=== PATIENT | female | born 1940 | race Caucasian/White ===

== ENCOUNTER 2023-09-24 17:22 | Emergency (ER) | payer MEDICARE, SELFPAY ==
[2023-09-24 17:25] VITALS: BP 104/62
[2023-09-24 17:44] LABS: % Basophils 0.6 % (0-2); % Eosinophils 3.8 % (0-6); % Immature Granulocytes 0.4 % (0-0.5); % Lymphocytes 16.1 % (20.5-51.1); % Monocytes 9.8 % (1.7-9.3); % Neutrophils 69.3 % (42.2-75.2); Absolute Eosinophils 0.2 10^3/uL (0-0.7); Absolute Lymphocytes 0.8 10^3/uL (1.2-3.4); Absolute Monocytes 0.5 10^3/uL (0.1-0.6); Absolute Neutrophils 3.5 10^3/uL (1.4-6.5); Hematocrit 36.6 % (37.0-47.0); Hemoglobin 11.8 g/dL (12.0-16.0); Mean Corp Hgb Conc. 32.2 g/dL (33.0-37.0); Mean Corpuscular Hgb 28.9 pg (27.0-31.0); Mean Corpuscular Volume 89.5 fL (81.0-99.0); Mean Platelet Volume 9.8 fL (7.4-10.4); Nucleated Red Blood Cells % 0 %; Platelet Count 248 10^3/uL (130-400); Red Blood Cell Count 4.09 10^6/uL (4.20-5.40); Red Cell Dist. Width 15.5 % (11.5-14.5)
[2023-09-24 18:03] LABS: ALT (SGPT) 13 U/L (0-35); AST (SGOT) 32 U/L (14-36); Albumin 3.9 g/dl (3.5-5.0); Alkaline Phosphatase 70 U/L (38-126); Blood Urea Nitrogen 23 mg/dl (7-17); Carbon Dioxide 25 mmol/L (22-30); Chloride 105 mmol/L (98-107); Glucose 138 mg/dl (70-99); Lipase 233 U/L (23-300); Potassium 4.7 mmol/L (3.5-5.1); Sodium 136 mmol/L (135-145); Total Bilirubin 0.7 mg/dl (0.2-1.3); Total Protein 6.6 g/dl (6.3-8.2); eGFR 41.06
[2023-09-24 19:01] VITALS: BP 110/65
[2023-09-24] MEDS: OMNIPAQUE 50 ML PO (20:28)
--- NOTE | 2023-09-24 20:30 | ED.GENMED ---
History of Present Illness
General
Chief Complaint: Abdominal Symptoms
Source: patient and spouse
Exam Limitations: none
Time Seen by Provider: 09/24/23 20:06
Travel History
Have you had any contact with someone who has COVID-19?: No
Do you have any symptoms of coronavirus? Fever > 100 degrees, chills, cough, shortness of breath, sore throat, loss of taste or smell, muscle aches, or headache?: No
History of Present Illness
History of Present Illness:
83-year-old female 1 week of vague upper abdominal discomfort and rectal pain. Much more severe today. Described as moderate in nature. No vomiting or fever. However some anorexia today. Drinking some liquids. Feels like the abdominal issue
although pointing to her upper abdomen is diverticulitis per the patient
Past History
Past History
ED Past Medical History: Arrthythmia (Atrial fibrillation), IDDM, Psychiatric (a/d) and Other (Arthritis, ANTONIO, GI bleed, anemia)
ED Past Surgical History: Appendectomy, Gynecological (Hysterectomy) and Other (Breast reduction)
Social History
Tobacco: Non-smoker
Alcohol: None
Drug: None
Personal:
Living: with family
Employment: Retired
Review of Systems
Review of Systems
All Other Systems: Not applicable
Constitutional: Denies fever
Respiratory: Reports no symptoms
Cardiac: Reports no symptoms
ABD/GI: Denies diarrhea, bloody stools or black stools
Phy Exam
Physical Exam
Physical Exam:
GENERAL: Alert and oriented in no apparent distress
EYE: Orbits normal.
NECK: Supple, no thyroid palpable
ENT: Pharynx without erythema
CARDIAC: Mildly irregular no murmur
LUNGS: Clear breath sounds,normal
ABDOMEN: Soft, elevated BMI. Bowel sounds present. Scar right lower quadrant with incisional hernia. No tenderness at the site. No point tenderness no rebound or guarding. Rectal exam with no abscess or external hemorrhoids or bleeding.
However there is rectal pain with palpation
NEUROLOGICAL: Alert and oriented , grossly non-focal
SKIN: Warm and dry, no rash or lesion, no discoloration, skin intact.
MUSCULOSKELETAL: No edema,no deformity.Good color
PSYCH: Normal and appropriate interaction.
Course
Orders/Labs/Results
Orders:
Orders
09/24/23 17:35
Complete Blood Count/With Diff Urgent
Comprehensive Metabolic Panel Urgent
Lipase Urgent
09/24/23 20:14
CT Abd/pel (oral only)-[facility] Only Urgent
Comment:
Reason For Exam: Abdominal pain/rectal pain
IV Insert/Care/Rem.- Treatment PRN
0.9% Sodium Chloride 500 ml [Nss] 500 ml IV BOLUS
Iohexol [Omnipaque] See Protocol PO NOW STA
Abnormal Lab Results
09/24/23
17:35
RBC 4.09 L 10^6/uL
(4.20-5.40)
Hgb 11.8 L g/dL
(12.0-16.0)
Hct 36.6 L %
(37.0-47.0)
MCHC 32.2 L g/dL
(33.0-37.0)
RDW 15.5 H %
(11.5-14.5)
Absolute Lymphs (auto) 0.8 L 10^3/uL
(1.2-3.4)
Lymphocytes % 16.1 L %
(20.5-51.1)
Monocytes % 9.8 H %
(1.7-9.3)
BUN 23 H mg/dl
(7-17)
Creatinine 1.3 H mg/dL
(0.6-1.0)
Glucose 138 H mg/dl
(70-99)
09/24/23 17:35
09/24/23 17:35
Vital Signs
Initial and Last Documented VS:
Initial Vital Signs
Temp Pulse Resp BP Pulse Ox
98.9 F 76 16 104/62 97
09/24/23 17:25 09/24/23 17:25 09/24/23 17:25 09/24/23 17:25 09/24/23 17:25
Last Documented Vital Signs
Temp Pulse Resp BP Pulse Ox
98.9 F 76 16 110/65 94
09/24/23 17:25 09/24/23 17:25 09/24/23 17:25 09/24/23 19:01 09/24/23 23:31
*Radiology
Radiology exam reviewed: radiology read reviewed (Diverticulosis. Mild perinephric stranding. No obstruction.)
*Pulse Oximetry
Patient hypoxic: no
*Critical Care Note
Total Time (30-74mins, 75-104mins- exclusive of procedures): Not Applicable
Data Reviewed
Review of Other/Old Records Reveals: Labs, Records, Testing and Discharge Summary
Update Note
Update Note:
No acute findings on CT. No UTI symptoms. Patient has rectal pain and clinically mild proctitis. No indication for admission. I was initially contemplating antibiotics for a possible mild proctitis however with patient's significant allergy
issues and medication reactions along with no findings of proctitis by CT we will hold on this treatment and treat more conservatively to follow-up
ED Attending Note
-
Portions of this chart may have been created with voice recognition software.� Occasional wrong word or��sound alike� substitutions may have occurred due to the inherent limitations of voice recognition software.
Discharge Plan
Departure
Patient Disposition: Home (Routine Discharge)
Date of Disposition: 09/25/23
Time of Disposition: 00:04
Patient with high blood pressure during this ER visit?: No
Discharge Problem:
Abdominal pain, Mild renal insufficiency/dehydration, Rectal pain/hemorrhoids
Instructions: Abdominal Pain
Prescriptions:
New
hydrocortisone acetate [Anusol-HC] 25 mg suppository
25 mg HI DAILY 14 Days Qty: 12 0RF
No Action
pravastatin 40 MG tablet
40 mg PO QPM
cyanocobalamin (vitamin B-12) 1,000 MCG tablet
1,000 mcg PO DAILY
amlodipine 10 MG tablet
10 mg PO DAILY
cranberry 500 mg Capsule
500 mg PO DAILY Qty: 0
cholecalciferol (vitamin D3) 1,000 UNITS tablet
5,000 units PO DAILY
pantoprazole 40 MG tablet,delayed release (DR/EC)
40 mg PO DAILY
losartan 50 mg Tablet
50 mg PO DAILY
metoprolol succinate [Toprol XL] 25 mg Tablet Extended Release 24 Hr
25 mg PO DAILY
duloxetine [Cymbalta] 20 mg Capsule,Delayed Release(Dr/Ec)
20 mg PO DAILY
ascorbic acid (vitamin C) [Vitamin C] 500 mg Tablet
500 mg PO DAILY
ferrous sulfate 325 mg (65 mg iron) Tablet
325 mg PO DAILY
coenzyme Q10 [CoQ-10] 100 mg Capsule
100 mg PO DAILY
latanoprost 0.005 % drops
1 drp BOTH EYES QPM
calcium carbonate 500 mg calcium (1,250 mg) Tablet
500 mg PO DAILY
sertraline 50 mg tablet
50 mg PO DAILY
polyethylene glycol 3350 [Miralax] 17 gram Powder In Packet
17 g PO DAILY
albuterol sulfate 90 mcg/actuation HFA aerosol inhaler
2 puff INHALATION R Q4HPRN PRN (Reason: SOB)
hydrocortisone acetate 25 mg Suppository
25 mg HI HS 5 Days Qty: 5 0RF
aspirin [Adult Low Dose Aspirin] 81 mg tablet,delayed release (DR/EC)
81 mg PO DAILY Qty: 30 0RF
fenofibrate micronized 134 mg Capsule
134 mg PO QPM
guaifenesin 600 mg Tablet Extended Release 12hr
600 mg PO Q12 Qty: 20 0RF
insulin lispro [Humalog KwikPen Insulin] 100 unit/mL insulin pen
5 unit SC AC Qty: 0 0RF
insulin degludec [Tresiba FlexTouch U-100] 100 UNIT/ML insulin pen
10 unit SC HS Qty: 0 0RF
Referrals:
Milan Be MD [Active] - Next open appointment
Andra Steele CRNP [Family Provider] -
Activity Restrictions/Additional Instructions:
I gave you the name of a colorectal surgeon you could call for follow-up
Use the Anusol suppositories daily
Increase fluid intake
Close follow-up with primary physician
Return sooner with increased pain fever vomiting or any other concerning symptoms
Interventions
Interventions:
ZH-[id number]-[id number] Assessment Last Done: 09/24/23 19:06
[2023-09-24] MEDS: NSS 500 IV (20:37)
[2023-09-25] VITALS: BP 128/69
== END 2023-09-25 01:16 | disposition home or self-care (01) ==
LOC: EMR 17:22
PROVIDERS: Emergency Medicine; EMERGENCY PHYSICIAN Emergency Medicine; FAMILY PHYSICIAN Nurse Practitioner
DX: R10.10 Upper abdominal pain, unspecified (principal); K64.9 Unspecified hemorrhoids; E86.0 Dehydration; N28.9 Disorder of kidney and ureter, unspecified; K62.89 Other specified diseases of anus and rectum; R63.0 Anorexia; K57.30 Diverticulosis of large intestine without perforation or abscess without bleeding; I48.91 Unspecified atrial fibrillation; E11.9 Type 2 diabetes mellitus without complications; G47.33 Obstructive sleep apnea (adult) (pediatric); M19.90 Unspecified osteoarthritis, unspecified site; D64.9 Anemia, unspecified; Z79.4 Long term (current) use of insulin; Z88.1 Allergy status to other antibiotic agents; Z88.5 Allergy status to narcotic agent; Z88.0 Allergy status to penicillin; Z88.2 Allergy status to sulfonamides; Z88.8 Allergy status to other drugs, medicaments and biological substances
CPT/HCPCS: 99285; 96360; 96361; 74176; 80053; 83690; 85025

== ENCOUNTER → 2024-01-28 08:39 | Outpatient (REF) | payer MEDICARE, SELFPAY ==
[2024-01-28 11:58] LABS: HDL Cholesterol 51 mg/dl; LDL Cholesterol, Calculated 104 mg/dl; Total Cholesterol 189 mg/dl (50-199); Triglyceride 174 mg/dl (10-149); Very Low Density Lipoprotein 34 mg/dl (0-30)
== END ==
LOC: HWRAD 08:39
PROVIDERS: ATTENDING PHYSICIAN Nurse Practitioner
DX: Z12.31 Encounter for screening mammogram for malignant neoplasm of breast (principal); M81.0 Age-related osteoporosis without current pathological fracture; E78.2 Mixed hyperlipidemia
CPT/HCPCS: 36415; 77063; 77067; 77080; 80061

== ENCOUNTER → 2024-02-23 11:24 | Outpatient (REF) | payer MEDICARE, SELFPAY | LOC: HWRCS 11:24 | PROVIDERS: ATTENDING PHYSICIAN Internal Medicine Cardiovascular Disease; FAMILY PHYSICIAN Nurse Practitioner | DX: I10 Essential (primary) hypertension (principal); I48.21 Permanent atrial fibrillation; R53.83 Other fatigue | CPT/HCPCS: 93306 ==

== ENCOUNTER → 2024-11-02 13:23 | Outpatient (REF) | payer MEDICARE, SELFPAY | LOC: HWRAD 13:23 | DX: M54.2 Cervicalgia (principal); M25.511 Pain in right shoulder; M25.512 Pain in left shoulder | CPT/HCPCS: 72050; 73030 ==

== ENCOUNTER → 2025-03-13 09:41 | Outpatient (REF) | payer MEDICARE, SELFPAY ==
[2025-03-13 10:16] LABS: Hematocrit 36.1 % (37.0-47.0); Hemoglobin 11.9 g/dL (12.0-16.0); Mean Corp Hgb Conc. 33.0 g/dL (33.0-37.0); Mean Corpuscular Volume 90.7 fL (81.0-99.0); Platelet Count 175 10^3/uL (130-400); Red Cell Dist. Width 13.8 % (11.5-14.5)
[2025-03-13 10:47] LABS: Blood Urea Nitrogen 22 mg/dl (7-17); Calcium 9.8 mg/dl (8.4-10.2); Carbon Dioxide 26 mmol/L (22-30); Chloride 109 mmol/L (98-107); Glucose 160 mg/dl (70-99); HDL Cholesterol 35 mg/dl; LDL Cholesterol, Calculated 92 mg/dl; Potassium 4.2 mmol/L (3.5-5.1); Sodium 140 mmol/L (135-145); Very Low Density Lipoprotein 46 mg/dl (0-30); eGFR 55.90
[2025-03-13 10:51] LABS: Glycohemoglobin (HgbA1c) 6.8 % (4.0-5.6)
[2025-03-13 11:04] LABS: Vitamin D, 25-OH*** 33.1 ng/mL (30-80)
[2025-03-13 11:17] LABS: TSH 1.15 uIU/ml (0.47-4.68)
== END ==
LOC: OLABN 09:41
PROVIDERS: ATTENDING PHYSICIAN Student in an Organized Health Care Education/Training Program
DX: E11.40 Type 2 diabetes mellitus with diabetic neuropathy, unspecified (principal); E78.5 Hyperlipidemia, unspecified; E55.9 Vitamin D deficiency, unspecified; E03.9 Hypothyroidism, unspecified
CPT/HCPCS: 36415; 80048; 80061; 82306; 83036; 84443; 85027

== ENCOUNTER 2025-04-09 19:03 | Inpatient (IN) | payer OTHER, SELFPAY ==
[2025-04-09 15:36] VITALS: BMI 34.0
[2025-04-09 15:38] VITALS: BP 176/78
--- NOTE | 2025-04-09 15:45 | ED.GENMED ---
History of Present Illness
General
Chief Complaint: Breathing Problem
Time Seen by Provider: 04/09/25 15:36
History of Present Illness
History of Present Illness:
84-year-old female presents to the emergency department with A-fib, hypertension, hyperlipidemia presents to the emergency department for evaluation of hypoxia and dry cough for the past several days. Patient is uncertain if she has gained any
weight but does note increased leg swelling during this time. No fevers or chills. No chest pain at this time. Was noted to be hypoxic in the 80s for nursing facility, on arrival was in the upper 80s and promptly placed on 6 L nasal cannula by
nursing staff
Past History
Past History
ED Past Medical History: Arrthythmia (Atrial fibrillation), IDDM, Psychiatric (a/d) and Other (Arthritis, ANTONIO, GI bleed, anemia)
ED Past Surgical History: Appendectomy, Gynecological (Hysterectomy) and Other (Breast reduction)
Social History
Tobacco: Non-smoker
Alcohol: None
Drug: None
Personal:
Living: with family
Employment: Retired
Review of Systems
Review of Systems
Allergies reviewed?: Yes
All Other Systems: ROS reviewed and negative except as documented in HPI and ROS
Phy Exam
Physical Exam
Physical Exam:
GEN: Well appearing, NAD, WDWN
HEENT: Oral mucosa moist, no scleral icterus
Cardiac: Irregular, controlled rate,
Lung: No respiratory distress, no tachypnea, lungs clear to auscultation
MSK: Moderate lower extremity edema bilaterally, nontender
Skin: Good color, no pallor or jaundice, no rashes
Neuro: AO x3, moves all extremities freely
Psych: Calm, cooperative
Scores
Heart Failure Risk
Heart Failure Risk Score: Yes
History of Stroke or TIA: No
History of intubation for respiratory distress: No
Heart rate on ED arrival >/= 110: No
SaO2 <90% on arrival on room air: No
HR >/=110 during 3min walk test (or too ill to perform test): No
ECG has acute ischemic changes: No
Urea >/=12mmol/L (BUN 33.6mg/dL): No
Serum CO2>/=35mmol/L: No
Troponin I or T elevated to MA Level (0.4mg/dL): No
NT-proBNP >/=5,000ng/L (5,000pg/ml): Yes
HF Risk Score: 1
Admission Status: MEDIUM RISK 5.1% Consider observation or discharge to home with homecare & f/u visit to PCP/Client Services Representative, or SNF for treatment
Course
Orders/Labs/Results
Orders:
Orders
04/09/25 Dinner
Cholesterol Lowering
At Your Request: Limited Participation
Does patient need a safe tray?: No
Cholesterol Lowering: Sodium, 2 Gram
04/09/25 15:45
CR Chest - 2 Views Urgent
Comment:
Reason For Exam: SOB
04/09/25 16:07
COVID-19 Antigen Urgent
Source: Nasal Swab
Complete Blood Count/No Diff Urgent
Comprehensive Metabolic Panel Urgent
NT-proBNP Urgent
Troponin I Urgent
Influenza A+B Rapid Molecular Urgent
MIRYAM Source: Nasal Swab
Specimen Description:
04/09/25 17:12
Furosemide [Lasix] 40 mg IV ONCE ONE
04/09/25 17:14
Electrocardiogram (*1) Urgent
Reason for Study: Shortness of Breath
EKG- Treatment ONCE
04/09/25 18:19
Admit/Transfer Patient As Directed
Co-Sign Provider:
Level of Care: Inpatient admission
Assign to:: Telemetry
Physician / Group: harjinder
Diagnosis: chf exacerbation
Reason for Telemetry: Pulmonary Edema
Date to Stop Telemetry: 04/12/25
Time to Stop Telemetry: 11:00
Reason for Hospitalization: chf exacerbation
Expected length of stay greater than two midnights?: Yes
ELOS- Estimated Length of Stay in days: 2
I certify the patient meets the requirements for IP care: Yes
Code Status As Directed
Resuscitation Status: Do not resuscitate
Reached after discussion with pt or family/Healthcare POA: Yes
DNR Bracelet Application ONCE
PRN Pain Medication Management As Directed
May give lesser potent ordered pain med per pt: Yes
preference::
Protocol:: Medication orders for pain may be administered in a
manner that supports deferring to patient preference
when the pt is:
- Requesting an ordered lesser potent pain medication.
Least to most potent pain medications are defined
as: acetaminophen < NSAID < tramadol < opioids
(morphine, oxycodone, hydromorphone).
- Requesting a lesser dose of the same medication IF
ORDERED.
- Requesting a less intrusive route of administration
if both routes are prescribed by the provider (PO <
IV).
04/09/25 19:57
Acetaminophen [Tylenol] 650 mg PO Q6HPRN PRN mild pain
Bisacodyl [Dulcolax] 10 mg RECTAL [id number] PRN if no bm aftr mom
Dextrose 50%-Water [Dextrose 50% Syringe] 12.5 grams IV [id number] PRN
Glucagon [GlucaGen] 1 mg IM PRN PRN
Ondansetron HCl [Zofran] 4 mg PO Q8HPRN PRN nausea
04/09/25 19:57
Echo 2D MMode Color/Doppler Routine
Reason for Study: chf
Activity As Directed
Activity Level: As Tolerated
Bedside Glucose Monitoring As Directed
Frequency: AC&HS
Additional Instructions:: Change to q6h if pt on TPN, tube feeding or not eating
I/O [Intake/ Output] As Directed
Frequency: q12h
Vital Signs As Directed
Frequency: Per unit guidelines
Weight As Directed
Frequency: Daily
DX Deep Vein Thrombosis Video Routine
04/09/25 20:00
Heparin 5,000 units SC Q12
04/09/25 22:00
Acetaminophen [Tylenol] 650 mg PO QID
Gabapentin [Neurontin] 300 mg PO HS
Magnesium Hydroxide [Milk of Magnesia] 30 ml PO HSPRN PRN constipation
Rosuvastatin Calcium [Crestor] 5 mg PO HS
insulin glargine [Lantus Solostar U-100 Insulin] 22 unit SC HS
04/10/25 06:00
Complete Blood Count/With Diff IN AM
Comprehensive Metabolic Panel IN AM
Glycohemoglobin (HgbA1c) IN AM
04/10/25 07:30
Insulin Aspart Corrective Low [Novolog Flexpen-Low Resistance] See Protocol SC AC
04/10/25 08:00
Amlodipine [Norvasc] 5 mg PO DAILY
Aspirin Chewable [Low Strength Aspirin] 81 mg PO DAILY
Fenofibrate 145 [Tricor] 145 mg PO DAILY
Furosemide [Lasix] 40 mg IV DAILY
Gabapentin [Neurontin] 100 mg PO DAILY
Losartan [Cozaar] 50 mg PO DAILY
Metoprolol Xl [Toprol Xl] 25 mg PO DAILY
Metoprolol Xl [Toprol Xl] 50 mg PO DAILY
Pantoprazole [Protonix] 40 mg PO DAILY
Sertraline HCl [Zoloft] 100 mg PO DAILY
cranberry fruit [cranberry] 450 mg PO DAILY
04/12/25 11:00
DC Protocol for Telemetry ONCE
Abnormal Lab Results
04/09/25
16:07
RBC 3.97 L 10^6/uL
(4.20-5.40)
Hgb 11.5 L g/dL
(12.0-16.0)
MCHC 31.0 L g/dL
(33.0-37.0)
BUN 27 H mg/dl
(7-17)
Creatinine 1.1 H mg/dL
(0.6-1.0)
Glucose 208 H mg/dl
(70-99)
04/09/25 16:07
04/09/25 16:07
Vital Signs
Initial and Last Documented VS:
Initial Vital Signs
Temp Pulse Resp BP Pulse Ox
98.2 F 69 26 176/78 90
04/09/25 15:38 04/09/25 15:38 04/09/25 15:38 04/09/25 15:38 04/09/25 15:38
Last Documented Vital Signs
Temp Pulse Resp BP Pulse Ox
97.7 F 68 20 141/87 94
04/09/25 20:10 04/09/25 20:10 04/09/25 20:10 04/09/25 20:10 04/09/25 20:10
MDM/Problems Addressed
MDM/Problems Addressed:
Presentation most consistent with acute CHF, cardiomegaly on chest x-ray and elevated proBNP With the patient being in A-fib although rate controlled. No evidence for pneumonia, no chest pain suspicious for PE. Will admit for IV diuresis
Comment
Comment:
EKG independently interpreted by me shows a rate controlled atrial fibrillation with no ST changes concerning for ischemia
*Pulse Oximetry
SaO2: 91
Oxygen Mode of Delivery: Room air
Patient hypoxic: no
*Critical Care Note
Total Time (30-74mins, 75-104mins- exclusive of procedures): Not Applicable
ED Attending Note
-
Portions of this chart may have been created with voice recognition software.� Occasional wrong word or��sound alike� substitutions may have occurred due to the inherent limitations of voice recognition software.
Discharge Plan
Departure
Patient Disposition: Admit
Date of Disposition: 04/09/25
Time of Disposition: 18:04
Admit to: Telemetry
Presentation/result/management discussed w/ accepting MD/DO: Hospitalist
Discharge Problem:
Acute CHF, Acute hypoxemic respiratory failure
Interventions
Interventions:
*Risk Screen - Suicide Last Done: 04/09/25 15:44
*General Assessment Last Done: 04/09/25 15:44
*Neglect/Abuse Screening Last Done: 04/09/25 15:44
*ED- Fall Risk Assessment Last Done: 04/09/25 15:38
*ED COVID-19 Vaccine History Last Done: 04/09/25 15:38
*Nursing Disposition Last Done: 04/09/25 19:58
ED- Cardiac Assessment Last Done: 04/09/25 18:32
ED- Pulmonary Assessment Last Done: 04/09/25 18:32
Discharge Date and Time
Discharge Date/Time: 04/09/25 19:58
[2025-04-09 16:00] VITALS: BP 143/77
[2025-04-09 16:31] LABS: Hematocrit 37.1 % (37.0-47.0); Hemoglobin 11.5 g/dL (12.0-16.0); Mean Corp Hgb Conc. 31.0 g/dL (33.0-37.0); Mean Corpuscular Volume 93.5 fL (81.0-99.0); Platelet Count 219 10^3/uL (130-400); Red Cell Dist. Width 13.6 % (11.5-14.5)
[2025-04-09 16:32] LABS: ALT (SGPT) 18 U/L (0-35); AST (SGOT) 29 U/L (14-36); Albumin 4.2 g/dl (3.5-5.0); Alkaline Phosphatase 42 U/L (38-126); Blood Urea Nitrogen 27 mg/dl (7-17); Calcium 9.8 mg/dl (8.4-10.2); Carbon Dioxide 27 mmol/L (22-30); Chloride 106 mmol/L (98-107); Estimated Creatinine Clearance 41 ml/min; Glucose 208 mg/dl (70-99); Potassium 4.5 mmol/L (3.5-5.1); Sodium 140 mmol/L (135-145); Total Protein 6.7 g/dl (6.3-8.2); eGFR 49.86
[2025-04-09 16:43] LABS: Troponin I < 0.012 ng/ml
[2025-04-09 16:52] LABS: COVID-19 Antigen Negative (Negative)
--- NOTE | 2025-04-09 18:23 | HPS.HSE ---
Family Physician
-
Family Physician: Tim Yao DO
Chief Complaint
-
hypoxemia
History of Present Illness
84-year-old female past medical history of permanent atrial fibrillation, type 2 diabetes, hypertension, anxiety, GI bleeding, chronic kidney disease, hemorrhoids, obesity, osteoarthritis, presenting for hypoxemia at the facility. She has increased
leg swelling but unsure if he has gained any weight. Denies fevers or chills. No chest pain. She was hypoxic to 80s in the nursing facility. No fevers or chills. No dizziness.
She has a lifelong history of head shaking which could not be diagnosed. The shaking is worse at this time.
Medical History
Past Medical History
Past Medical History: Reports Other (permanent atrial fibrillation, type 2 diabetes, hypertension, anxiety, GI bleeding, chronic kidney disease, hemorrhoids, obesity, osteoarthritis)
Past Surgical History: Reports Other (Appendectomy, Gynecological (Hysterectomy) and Other (Breast reduction))
Social History
Tobacco: Non-smoker
Alcohol: None
Drug: None
Family History
Family History: Not pertinent
Allergies / Home Medications
Allergies reflects when Allergies were last updated in [email or web address].
Home Medications with original date entered in [email or web address]
Allergy/Medication List:
Allergies
Allergy/AdvReac Type Severity Reaction Status Date / Time
clindamycin Allergy Unknown Verified 09/24/23 17:30
codeine Allergy Unknown Verified 09/24/23 17:30
Penicillins Allergy Tongue Verified 09/24/23 17:30
Swelling
pentazocine (From Talwin) Allergy Unknown Verified 09/24/23 17:30
phenobarbital Allergy Tongue Verified 09/24/23 17:30
Swelling
prochlorperazine (From Allergy Unknown Verified 09/24/23 17:30
Compazine)
ropinirole Allergy Unknown Verified 09/24/23 17:30
Sulfa (Sulfonamide Allergy Unknown Verified 09/24/23 17:30
Antibiotics)
Tetracyclines Allergy Tongue Verified 09/24/23 17:30
Swelling
Home Medications
pantoprazole 40 mg tablet,delayed release 40 mg PO DAILY Gastrointestinal issue 02/02/21
losartan 50 mg tablet 50 mg PO DAILY Blood pressure 07/03/22
albuterol sulfate 90 mcg/actuation aerosol inhaler 2 puff inhalation R Q4HPRN PRN SOB 08/14/23
fenofibrate micronized 134 mg capsule 134 mg PO DAILY High Cholesterol 08/22/23
acetaminophen 325 mg tablet (Tylenol) 650 mg PO Q6HPRN PRN mild pain 04/09/25
acetaminophen 650 mg tablet,extended release 1,300 mg PO Q12H 04/09/25
amlodipine 5 mg tablet (Norvasc) 5 mg PO DAILY 04/09/25
aspirin 81 mg chewable tablet 81 mg PO DAILY 04/09/25
bisacodyl 10 mg rectal suppository (Dulcolax (bisacodyl)) 10 mg NC [id number] PRN if no bm aftr mom 04/09/25
cranberry fruit 450 mg tablet (cranberry) 450 mg PO DAILY 04/09/25
gabapentin 100 mg capsule 100 mg PO DAILY 04/09/25
gabapentin 300 mg capsule 300 mg PO HS 04/09/25
insulin aspart U-100 100 unit/mL subcutaneous solution 10 sliding scale dose SC AC 04/09/25
insulin glargine 100 unit/mL (3 mL) subcutaneous pen (Lantus Solostar U-100 Insulin) 22 unit SC HS 04/09/25
magnesium hydroxide 400 mg/5 mL oral suspension (Milk of Magnesia) 2,400 mg PO HSPRN PRN constipation 04/09/25
metoprolol succinate 25 mg tablet,extended release 24 hr (Toprol XL) 25 mg PO DAILY 04/09/25
metoprolol succinate 50 mg tablet,extended release 24 hr (Toprol XL) 50 mg PO DAILY 04/09/25
ondansetron HCl 4 mg tablet 4 mg PO Q8HPRN PRN nausea 04/09/25
rosuvastatin 5 mg tablet (Crestor) 5 mg PO HS 04/09/25
sertraline 100 mg tablet 100 mg PO DAILY 04/09/25
Review of Systems
-
Constitutional: Reports No Symptoms
EENT: Reports No Symptoms
Respiratory: Reports See HPI
Cardiac: Reports See HPI
Abdomen/GI: Reports No Symptoms
: Reports No Symptoms
Musculoskeletal: Reports No Symptoms
Skin: Reports No Symptoms
Neurological: Reports No Symptoms
Endocrine: Reports No Symptoms
Hematologic/Lymphatic: Reports No Symptoms
Psych: Reports No Symptoms
Physical Exam
Vital Signs
Vital Signs
Temp Pulse Resp BP Pulse Ox
98.2 F 75 24 176/78 91
04/09/25 15:38 04/09/25 15:38 04/09/25 15:38 04/09/25 15:38 04/09/25 15:45
Physical Exam
General: Well Developed, Well Nourished and No Apparent Distress
HEENT: NormoCephalic, Moist mucous membranes and Atraumatic
Respiratory: Clear
Cardiac: S1/S2, Regular Rhythm and Peripheral Edema; No Murmur or Rub
GI: Soft, Non Tender, Non Distended and Normal Bowel Sounds; No Organomegaly
Rectal: Deferred by Provider
Musculoskeletal: No Clubbing, No Cyanosis and No Edema
Skin: No Rash
Neuro: Nonfocal/grossly intact
Laboratory Results
-
04/09/25 16:07
04/09/25 16:07
Laboratory Results
Total Bilirubin 0.6 mg/dl (0.2-1.3) 04/09/25 16:07
AST 29 U/L (14-36) 04/09/25 16:07
ALT 18 U/L (0-35) 04/09/25 16:07
Alkaline Phosphatase 42 U/L (38-126) 04/09/25 16:07
Troponin I < 0.012 ng/ml 04/09/25 16:07
Data Reviewed
-
Lab Data: Labs Reviewed by me
Old Records: Reviewed
Impression/Plan
-
IMPRESSION:
PLAN:
# Acute CHF exacerbation
- Cardiac BNP of 5000
- Chest x-ray shows no evidence of consolidation or pneumonia
- Check I's and O's, daily weight
- 40 IV Lasix daily
- Check echocardiogram
- Cardiology consulted
Chronic head shaking unclear if underlying tremor/Parkinson's
- Patient states she has been worked up without any etiology found in the past
Permanent atrial fibrillation
- Continue metoprolol
- Continue aspirin
Chronic kidney disease 3B
- Creatinine stable at 1.1
Type 2 diabetes
- Continue Lantus 22 units
- Insulin sliding scale
Essential hypertension
- Continue amlodipine, losartan
Chronic anemia
- Continue ferrous sulfate
Anxiety
- Continue sertraline
History of GI bleeding
- Continue Protonix
History of hemorrhoids
Obesity
Osteoarthritis
- Continue gabapentin
Obstructive sleep apnea
Hypercholesteremia
- Continue statin, fenofibrate
DNR/DNI
DVT prophylaxis�heparin
Cardiac diet
[2025-04-09 20:10] VITALS: BP 141/87; BMI 33.0
--- NOTE | 2025-04-09 20:30 | PTCARENOTE ---
Pt rec'd to floor awake & alert. Pt able to transfer to chair/BSC w/min assist of 1. Significant head tremors. Denies any pain; no acute resp distress.
[2025-04-09 21:28] LABS: Glucose - Point of Care 126 mg/dl (70-99)
[2025-04-09] MEDS: LASIX 40 MG IV (22:10)
[2025-04-09] MEDS: FLUSH (NSS) 2 FLUSH IV (22:12)
[2025-04-09] MEDS: HEPARIN 5000 UNITS SC (22:13)
[2025-04-09] MEDS: CRESTOR 5 MG PO (22:26)
[2025-04-09] MEDS: TYLENOL 650 MG PO (22:27)
[2025-04-09] MEDS: NEURONTIN 300 MG PO (22:28)
[2025-04-09] MEDS: LANTUS 0.22 UNITS SC (22:29)
[2025-04-09 23:23] VITALS: BP 172/85
[2025-04-10] VITALS (7 sets, daily range): BP systolic 141–171; BP diastolic 51–72; PULSE 69; O2SAT 97; BMI 32.3
[2025-04-10 07:55] LABS: Hematocrit 34.6 % (37.0-47.0); Hemoglobin 11.1 g/dL (12.0-16.0); Mean Corp Hgb Conc. 32.1 g/dL (33.0-37.0); Mean Corpuscular Volume 92.0 fL (81.0-99.0); Nucleated Red Blood Cells % 0 %; Platelet Count 187 10^3/uL (130-400); Red Cell Dist. Width 13.6 % (11.5-14.5)
[2025-04-10 08:16] LABS: ALT (SGPT) 16 U/L (0-35); AST (SGOT) 27 U/L (14-36); Albumin 4.0 g/dl (3.5-5.0); Alkaline Phosphatase 42 U/L (38-126); Blood Urea Nitrogen 26 mg/dl (7-17); Calcium 9.7 mg/dl (8.4-10.2); Carbon Dioxide 28 mmol/L (22-30); Chloride 106 mmol/L (98-107); Estimated Creatinine Clearance 43 ml/min; Glucose 126 mg/dl (70-99); Potassium 4.3 mmol/L (3.5-5.1); Sodium 141 mmol/L (135-145); Total Protein 6.3 g/dl (6.3-8.2); eGFR 55.90
[2025-04-10 08:57] LABS: Glucose - Point of Care 138 mg/dl (70-99)
[2025-04-10] MEDS: NEURONTIN 100 MG PO (09:19)
[2025-04-10] MEDS: NOVOLOG FLEXPEN-LOW RESISTANCE SC (09:19)
[2025-04-10] MEDS: TYLENOL 650 MG PO ×4 (09:19→21:25)
[2025-04-10] MEDS: COZAAR 50 MG PO (09:20)
[2025-04-10] MEDS: LOW STRENGTH ASPIRIN 81 MG PO (09:20)
[2025-04-10] MEDS: TOPROL XL 50 MG PO (09:20)
[2025-04-10] MEDS: TRICOR 145 MG PO (09:20)
[2025-04-10] MEDS: NORVASC 5 MG PO (09:20)
[2025-04-10] MEDS: PROTONIX 40 MG PO (09:20)
[2025-04-10] MEDS: LASIX 40 MG IV (09:21)
[2025-04-10] MEDS: ZOLOFT 100 MG PO (09:21)
[2025-04-10] MEDS: HEPARIN 5000 UNITS SC ×2 (09:21→21:24)
[2025-04-10] MEDS: FLUSH (NSS) 2 FLUSH IV (09:21)
--- NOTE | 2025-04-10 11:17 | CON.CAR ---
Addendum entered and electronically signed by Lupillo Cruz MD 04/10/25 14:52:
I saw and evaluated the patient, and I provided the substantive portion of the medical decision making.
I reviewed and agree with the note by Lalitha Hong NP and it accurately reflects our care.
I personally performed the medical decision making of the this encounter and my assessment and plan is below:
No history of heart failure that we see on speaking with her or our chart review. HF is supported by data review: CXR image shows cardiac enlargement, perhaps slight congestion (AP sitting, limits), Hgb 11, Cr 1, pBNP 5060, trop normal, EKG with
rate controlled AFib. Exam shows clear lungs after lasix and just tr edema. Her response to Lasix= > feels better supports HF
New HF, echo shows HFpEF with mild valve disease
Perm AFib, off anticoagulation
DM
HTN
Will continue diuresis, check cost of meds
I will add Aldactone 12.5 daily and if SGLT2-I affordable will add that
Home on daily Lasix
No plans for inpatient ischemic evaluation
Original Note:
Consultation
Consultation Request
Date/Time Consultation Requested: 04/10/25 8:30a
Date/Time Consultation Performed: 04/10/25 11a
Requesting Provider: Dr. Mayorga
Performing Provider: ALISTAIR Ruiz for Dr. Cruz
Medical History
-
Chief Complaint: sob
History of Present Illness:
Mrs. Rosado is an 84-year-old female with permanent atrial fibrillation (no longer on Eliquis secondary to recurrent GI bleeding, falls), hypertension, HLD, DM, GERD, anxiety/depression and recurrent GI bleed, who presents to the ER from [facility] for SOB, hypoxic 80% sat on room air. She is admitted to the hospitalist service for SOB/hypoxia and we are consulted for acute HFpEF. She admits to feeling SOB for 3-4 days with associated LE edema. She has received IV Lasix and reports
improvement of symptoms. ProBNP 5060 and chest x-ray showed no evidence for consolidation, pneumonia, or pulmonary edema.
Past Medical History
Past Medical History: Other (as above)
Past Surgical History: Appendectomy, Tonsilectomy and Other (breast reduction in 2011)
Social History
Tobacco: Non-Smoker
Personal:
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
Family History
Family History: Reviewed & Not Pertinent
Allergies / Home Medications
Allergy/AdvReac Type Severity Reaction Status Date / Time
clindamycin Allergy Unknown Verified 09/24/23 17:30
codeine Allergy Unknown Verified 09/24/23 17:30
Penicillins Allergy Tongue Verified 09/24/23 17:30
Swelling
pentazocine (From [place]) Allergy Unknown Verified 09/24/23 17:30
phenobarbital Allergy Tongue Verified 09/24/23 17:30
Swelling
prochlorperazine (From Allergy Unknown Verified 09/24/23 17:30
Compazine)
ropinirole Allergy Unknown Verified 09/24/23 17:30
Sulfa (Sulfonamide Allergy Unknown Verified 09/24/23 17:30
Antibiotics)
Tetracyclines Allergy Tongue Verified 09/24/23 17:30
Swelling
�Medication �Instructions �Recorded �Confirmed �Type
pantoprazole 40 mg tablet,delayed 40 mg PO DAILY Gastrointestinal 02/02/21 04/09/25 History
release issue
losartan 50 mg tablet 50 mg PO DAILY Blood pressure 07/03/22 04/09/25 History
fenofibrate micronized 134 mg 134 mg PO DAILY High Cholesterol 08/22/23 04/09/25 History
capsule
acetaminophen 325 mg tablet 650 mg PO Q6HPRN PRN mild pain 04/09/25 04/09/25 History
(Tylenol)
acetaminophen 650 mg 1,300 mg PO Q12H Pain 04/09/25 04/09/25 History
tablet,extended release
amlodipine 5 mg tablet (Norvasc) 5 mg PO DAILY Blood Pressure 04/09/25 04/09/25 History
aspirin 81 mg chewable tablet 81 mg PO DAILY Blood Clot 04/09/25 04/09/25 History
Prevention/Tx
bisacodyl 10 mg rectal suppository 10 mg VA [id number] PRN if no bm aftr 04/09/25 04/09/25 History
(Dulcolax (bisacodyl)) mom
cranberry fruit 450 mg tablet 450 mg PO DAILY Supplement 04/09/25 04/09/25 History
(cranberry)
gabapentin 100 mg capsule 100 mg PO DAILY NEUROPATHIC PAIN 04/09/25 04/09/25 History
gabapentin 300 mg capsule 300 mg PO HS NEUROPATHIC PAIN 04/09/25 04/09/25 History
insulin aspart U-100 100 unit/mL 10 sliding scale dose SC AC 04/09/25 04/09/25 History
subcutaneous solution Diabetes
insulin glargine 100 unit/mL (3 22 unit SC HS Diabetes 04/09/25 04/09/25 History
mL) subcutaneous pen (Lantus
Solostar U-100 Insulin)
magnesium hydroxide 400 mg/5 mL 2,400 mg PO HSPRN PRN constipation 04/09/25 04/09/25 History
oral suspension (Milk of Magnesia)
metoprolol succinate 25 mg 25 mg PO QPM Blood Pressure 04/09/25 04/09/25 History
tablet,extended release 24 hr
(Toprol XL)
metoprolol succinate 50 mg 50 mg PO DAILY Blood Pressure 04/09/25 04/09/25 History
tablet,extended release 24 hr
(Toprol XL)
ondansetron HCl 4 mg tablet 4 mg PO Q8HPRN PRN nausea 04/09/25 04/09/25 History
rosuvastatin 5 mg tablet (Crestor) 5 mg PO HS High Cholesterol 04/09/25 04/09/25 History
sertraline 100 mg tablet 100 mg PO DAILY Mental 04/09/25 04/09/25 History
Health/Anxiety
Review of Systems
-
History Source: Patient
All other systems: Negative unless noted
Physical Exam
Vital Signs
Temp Pulse Resp BP Pulse Ox
97.8 F 64 20 171/72 97
04/10/25 08:48 04/10/25 08:48 04/10/25 08:48 04/10/25 08:48 04/10/25 08:48
Lab Results
04/10/25 05:59
04/10/25 05:59
Troponin I < 0.012 ng/ml 04/09/25 16:07
Ukl-U-Dlyrkrrvxvm Pept 5060 pg/ml 04/09/25 16:07
Physical Exam
General: Well Developed, Well Nourished and No Apparent Distress
HEENT: Normocephalic, Anicteric and Moist Mucous Membranes
Respiratory: Crackles (very mild bibasilar)
Cardiac: S1/S2, Irregular Rhythm and Peripheral Edema (mild b/l LE)
Breast: Deferred by me
GI: Soft, Non Tender and Normal Bowel Sounds
Rectal: Deferred by Provider
Genito-urinary: Clear Urine
Musculoskeletal: No Clubbing and No Cyanosis
Skin: Warm and Dry
Neuro: AO x 3
Psych: Calm
Impression / Plan
-
HFpEF - acute, new.
- agree with IV Lasix for diuresis.
- monitor daily weights, I&Os, labs.
- check echo.
- case management consult to investigate cost of SGLT2i and possibly GDMT if EF is reduced on echo.
Afib - permanent.
- rate controlled on Metoprolol, continue.
- [id number] score is 4 (age, female, HTN), no longer on Eliquis due to recurrent GI bleeding and falls.
HTN - stable on meds, continue.
- monitor with diuresis.
DM - insulin dependent, per hospitalist.
HLD - stable on Crestor, continue.
Data Reviewed
-
EKG: Tracing Personally Visualized and interpreted (Afib 74 bpm)
Radiology: Report Reviewed by me (CXR: No evidence for consolidation, with no findings to suggest pneumonia, cardiac silhouette size is enlarged with no convincing evidence for pulmonary edema pattern.)
Medical Tests (Nuc Med, Echo etc): Report Reviewed by me (echo 02/23/2024: normal biventricular size/function, no RWMA, EF 55-60%, no significant valve disease.)
Labs: Labs Reviewed by me
Old Records: Reviewed
[2025-04-10 12:01] LABS: Glucose - Point of Care 173 mg/dl (70-99)
[2025-04-10] MEDS: NOVOLOG FLEXPEN-LOW RESISTANCE 1 UNITS SC ×2 (12:58→17:15)
--- NOTE | 2025-04-10 13:12 | W.PN.HOSP.TC ---
Today's Communication/Plan
-
Monitor vitals
See plan
Continue with IV diuresis
Cardiology evaluation
Echo
Monitor renal function
Assessment / Plan
Assessment / Plan
General: Well Developed, Well Nourished and No Apparent Distress
HEENT: NormoCephalic, Moist mucous membranes and Atraumatic
Respiratory: Clear
Cardiac: S1/S2, Regular Rhythm and Peripheral Edema
GI: Soft, Non Tender, Non Distended and Normal Bowel Sounds
Musculoskeletal: edema
Neuro: Nonfocal/grossly intact
Acute CHF exacerbation with preserved ejection fraction
Acute hypoxic respiratory insufficiency likely secondary to above, wean oxygen as tolerated
- Cardiac BNP of 5000
- Chest x-ray shows no evidence of consolidation or pneumonia
- Check I's and O's, daily weight
Continue with IV Lasix
Echo 04/10 with preserved EF
- Cardiology following
Chronic head shaking unclear if underlying tremor/Parkinson's
- Patient states she has been worked up without any etiology found in the past
Permanent atrial fibrillation
- Continue metoprolol
- Continue aspirin
Chronic kidney disease 3B
- Creatinine stable at 1.1
Type 2 diabetes
- Continue Lantus 22 units
- Insulin sliding scale
Essential hypertension
- Continue amlodipine, losartan
Chronic anemia
- Continue ferrous sulfate
Anxiety
- Continue sertraline
History of GI bleeding
- Continue Protonix
History of hemorrhoids
Obesity
Osteoarthritis
- Continue gabapentin
Obstructive sleep apnea
Hypercholesteremia
- Continue statin, fenofibrate
DNR/DNI
DVT prophylaxis�heparin
I spent a total of 52 minutes with the patient or on the floor. More than 50% of this time involved counseling and coordination of care.
Anticipated Discharge: 24 - 48 hours
Subjective/Interval History
-
Date of Service: April 10, 2025
denies pain
Objective Data
-
Labs:
Laboratory Results
04/10/25
05:59
WBC 5.8
Hgb 11.1 L
Hct 34.6 L
Plt Count 187
Sodium 141
Potassium 4.3
Chloride 106
Carbon Dioxide 28
BUN 26 H
Creatinine 1.0
Glucose 126 H
Calcium 9.7
Total Bilirubin 0.8
AST 27
ALT 16
Alkaline Phosphatase 42
Vital Signs:
Vital Signs
Temp Pulse Resp BP Pulse Ox
98.2 F 61 20 152/65 96
04/10/25 11:00 04/10/25 11:00 04/10/25 11:00 04/10/25 11:00 04/10/25 11:00
I&O
04/09/25 04/10/25 04/11/25
06:59 06:59 06:59
Output Total 1300 / 1300 400 / 400
Balance -1300 / -1300 -400 / -400
[2025-04-10 17:05] LABS: Glucose - Point of Care 176 mg/dl (70-99)
[2025-04-10] MEDS: TOPROL XL 25 MG PO (17:19)
--- NOTE | 2025-04-10 17:54 | CM ---
Alert awake oriented patient who lives prison at [facility] x 1 month. She uses walker wheelchair and oxygen prn.Pt states she would like to return to [facility] at discharge. She is assisted all activities of daily living.
Pharmacy [facility]
PCP Dr Yao
PLAN return to [facility]
[2025-04-10 21:18] LABS: Glucose - Point of Care 162 mg/dl (70-99)
[2025-04-10] MEDS: NEURONTIN 300 MG PO (21:23)
[2025-04-10] MEDS: CRESTOR 5 MG PO (21:23)
[2025-04-10] MEDS: LANTUS 0.22 UNITS SC (21:24)
[2025-04-11] VITALS (7 sets, daily range): BP systolic 124–168; BP diastolic 52–84; PULSE 75; O2SAT 98; BMI 32.3
[2025-04-11 07:26] LABS: Glucose - Point of Care 130 mg/dl (70-99)
[2025-04-11 07:46] LABS: Hematocrit 34.5 % (37.0-47.0); Hemoglobin 10.9 g/dL (12.0-16.0); Mean Corp Hgb Conc. 31.6 g/dL (33.0-37.0); Mean Corpuscular Volume 91.5 fL (81.0-99.0); Nucleated Red Blood Cells % 0 %; Platelet Count 178 10^3/uL (130-400); Red Cell Dist. Width 13.5 % (11.5-14.5)
[2025-04-11] MEDS: NOVOLOG FLEXPEN-LOW RESISTANCE SC ×2 (07:47→12:12)
[2025-04-11] MEDS: COZAAR 50 MG PO (07:48)
[2025-04-11] MEDS: NORVASC 5 MG PO (07:50)
[2025-04-11] MEDS: TRICOR 145 MG PO (07:50)
[2025-04-11] MEDS: NEURONTIN 100 MG PO (07:51)
[2025-04-11] MEDS: TYLENOL 650 MG PO ×3 (07:52→17:00)
[2025-04-11] MEDS: PROTONIX 40 MG PO (07:52)
[2025-04-11] MEDS: TOPROL XL 50 MG PO (07:53)
[2025-04-11] MEDS: ALDACTONE 12.5 MG PO (07:53)
[2025-04-11] MEDS: LOW STRENGTH ASPIRIN 81 MG PO (07:54)
[2025-04-11] MEDS: ZOLOFT 100 MG PO (07:54)
[2025-04-11] MEDS: HEPARIN 5000 UNITS SC ×2 (07:55→19:48)
[2025-04-11] MEDS: LASIX 40 MG IV (07:56)
[2025-04-11 08:34] LABS: Blood Urea Nitrogen 33 mg/dl (7-17); Calcium 10.1 mg/dl (8.4-10.2); Carbon Dioxide 29 mmol/L (22-30); Chloride 104 mmol/L (98-107); Estimated Creatinine Clearance 39 ml/min; Glucose 138 mg/dl (70-99); Potassium 4.1 mmol/L (3.5-5.1); Sodium 138 mmol/L (135-145); eGFR 49.86
--- NOTE | 2025-04-11 09:25 | W.PN.CD ---
Today's Communication / Plan
-
Continue IV diuresis
May be ready for PO tomorrow
Impression / Plan
-
HFpEF, acute
- Severe exacerbation requiring IV diuresis and close monitoring of labs/telemetry
- TTE 04/10/2025: LVEF 61%, mildly reduced RV function, mild MR, mild/mod TR, PASP 49 mmHg
- Continue IV Lasix 40 mg daily. Suspect she may be ready for p.o. diuresis tomorrow.
- monitor daily weights, I&Os, labs.
- continue spironolactone 12.5 mg daily (new this admission)
- case management consult to investigate cost of SGLT2i
Afib - permanent.
- rate controlled on Metoprolol, continue.
- [id number] score is 4 (age, female, HTN), no longer on Eliquis due to recurrent GI bleeding and falls.
HTN - stable on meds, continue.
- monitor with diuresis.
DM - insulin dependent, per hospitalist.
HLD - stable on Crestor, continue.
Subjective: Bradycardia and lower extremity improved
Telemetry: Rate controlled atrial fibrillation
Physical Exam
Vital Signs/Labs
Vital Signs
Temp Pulse Resp BP Pulse Ox
98.8 F 69 20 133/84 91
04/11/25 07:25 04/11/25 07:25 04/11/25 07:25 04/11/25 07:25 04/11/25 08:04
04/10/25 04/11/25 04/12/25
06:59 06:59 06:59
Actual Weight 182 lb 4 oz 182 lb 3 oz
04/11/25 05:56
04/11/25 05:56
04/09/25
16:07
Mtm-C-Nslraszsgkd Pept 5060
LAB Results
04/09/25
16:07
Troponin I < 0.012
Physical Exam
Constitutional: No acute distress and Comfortable
Cardiovascular: Rhythm/rate is irregular, Pedal edema present and Murmur/rub/gallop absent
Respiratory: Respiratory effort normal and Crackles Present
Data Reviewed
-
Date of Service: April 11, 2025
Medical Decision Making: Reviewed Test Results, Test Interpretation and Review of Case with other Provider
EKG: Tracing Personally Visualized and interpreted (tele: rate-controlled AF)
Echo: Report Reviewed by me (TTE 04/10/2025: LVEF 61%, mildly reduced RV function, mild MR, mild/mod TR, PASP 49 mmHg)
X-Ray/CT/US/MRI/NUC/PET: Report Reviewed by me (pulm edema)
Labs: Labs Reviewed by me
[2025-04-11 11:50] LABS: Glucose - Point of Care 148 mg/dl (70-99)
[2025-04-11] MEDS: PREPARATION H OINTMENT 1 APPLIC RECTAL (12:38)
--- NOTE | 2025-04-11 13:12 | W.PN.HOSP.TC ---
Today's Communication/Plan
-
Monitor vital signs see plan
Continue with IV diuresis
Wean oxygen as tolerated
PT
Monitor renal function
Assessment / Plan
Assessment / Plan
General: Well Developed, Well Nourished and No Apparent Distress
HEENT: NormoCephalic, Moist mucous membranes and Atraumatic
Respiratory: Clear
Cardiac: S1/S2, Regular Rhythm and Peripheral Edema
GI: Soft, Non Tender, Non Distended and Normal Bowel Sounds
Musculoskeletal: edema
Neuro: Nonfocal/grossly intact
Acute CHF exacerbation with preserved ejection fraction
Acute hypoxic respiratory insufficiency likely secondary to above, wean oxygen as tolerated
- Cardiac BNP of 5000
- Chest x-ray shows no evidence of consolidation or pneumonia
- Check I's and O's, daily weight
TTE 04/10/2025: LVEF 61%, mildly reduced RV function, mild MR, mild/mod TR, PASP 49 mmHg
Continue with IV Lasix
Echo 04/10 with preserved EF
- Cardiology following
Chronic head shaking unclear if underlying tremor/Parkinson's
- Patient states she has been worked up without any etiology found in the past
Permanent atrial fibrillation
- Continue metoprolol
- Continue aspirin
Chronic kidney disease 3B
- Creatinine stable at 1.1
Type 2 diabetes
- Continue Lantus 22 units
- Insulin sliding scale
Essential hypertension
- Continue amlodipine, losartan
Chronic anemia
- Continue ferrous sulfate
Anxiety
- Continue sertraline
History of GI bleeding
- Continue Protonix
History of hemorrhoids
Obesity
Osteoarthritis
- Continue gabapentin
Obstructive sleep apnea
Hypercholesteremia
- Continue statin, fenofibrate
hx of hemorrhoids
cw preparation H
DNR/DNI
DVT prophylaxis�heparin
I spent a total of 52 minutes with the patient or on the floor. More than 50% of this time involved counseling and coordination of care.
Anticipated Discharge: Within 24 hours
Subjective/Interval History
-
Date of Service: April 11, 2025
denies pain
Objective Data
-
Labs:
Laboratory Results
04/11/25
05:56
WBC 4.4 L
Hgb 10.9 L
Hct 34.5 L
Plt Count 178
Sodium 138
Potassium 4.1
Chloride 104
Carbon Dioxide 29
BUN 33 H
Creatinine 1.1 H
Glucose 138 H
Calcium 10.1
Vital Signs:
Vital Signs
Temp Pulse Resp BP Pulse Ox
97.7 F 68 18 153/62 97
04/11/25 11:13 04/11/25 11:13 04/11/25 11:13 04/11/25 11:13 04/11/25 11:13
I&O
04/10/25 04/11/25 04/12/25
06:59 06:59 06:59
Intake Total 240 / 240
Output Total 1300 / 1300 1608 / 1608
Balance -1300 / -1300 -1368 / -1368
--- NOTE | 2025-04-11 14:53 | CM ---
Spoke with admissions at [facility] to update about resident. Faxed over updated clinical through [facility].
Plan: Case management will continue to follow and assist with discharge planning. Back to [facility] when stable.
[2025-04-11 16:42] LABS: Glucose - Point of Care 167 mg/dl (70-99)
[2025-04-11] MEDS: TOPROL XL 25 MG PO (17:00)
[2025-04-11] MEDS: NOVOLOG FLEXPEN-LOW RESISTANCE 1 UNITS SC (17:01)
[2025-04-11] MEDS: CRESTOR 5 MG PO (19:48)
[2025-04-11 21:10] LABS: Glucose - Point of Care 185 mg/dl (70-99)
[2025-04-11] MEDS: LANTUS 0.22 UNITS SC (21:29)
[2025-04-11] MEDS: NEURONTIN 300 MG PO (21:29)
[2025-04-11] MEDS: TYLENOL PO (21:29)
[2025-04-11] MEDS: ZOFRAN 4 MG PO (21:29)
[2025-04-12] VITALS (7 sets, daily range): BP systolic 102–155; BP diastolic 49–81; PULSE 81; O2SAT 94; BMI 32.1
--- NOTE | 2025-04-12 08:15 | W.PN.CD ---
Today's Communication / Plan
-
- Will place on Lasix 40 mg p.o. daily, which should be new home medication regimen; patient was previously not on Lasix at home.
- Continue spironolactone 12.5 mg daily.
- Will start Farxiga 10 mg daily.
- Outpatient follow-up with Cardiology.
Impression / Plan
-
HFpEF, acute
- Severe exacerbation requiring IV diuresis and close monitoring of labs/telemetry
- TTE 04/10/2025: LVEF 61%, mildly reduced RV function, mild MR, mild/mod TR, PASP 49 mmHg
- Will place on Lasix 40 mg p.o. daily, which should be new home medication regimen; patient was previously not on Lasix at home.
- Continue spironolactone 12.5 mg daily.
- Will start Farxiga 10 mg daily.
Afib - permanent.
- Remains rate controlled on current dose of metoprolol succinate; continue.
- [id number] score is 4 (age, female, HTN), no longer on Eliquis due to recurrent GI bleeding and falls.
HTN -fairly controlled on current medication regimen.
DM - insulin dependent, per hospitalist.
HLD - stable on Crestor, continue.
Subjective: No major events overnight. No cardiac complaints this a.m.
Telemetry: Rate controlled atrial fibrillation
Physical Exam
Vital Signs/Labs
Vital Signs
Temp Pulse Resp BP Pulse Ox
97.9 F 63 20 155/64 97
04/12/25 08:01 04/12/25 08:01 04/12/25 08:01 04/12/25 08:01 04/12/25 08:01
04/11/25 04/12/25 04/13/25
06:59 06:59 06:59
Actual Weight 82.639 kg 82.27 kg
04/09/25
16:07
Xvk-C-Qhzmarjhkkv Pept 5060
LAB Results
04/09/25
16:07
Troponin I < 0.012
Physical Exam
Constitutional: No acute distress and Comfortable
EENT: Anicteric
Cardiovascular: Rhythm & rate is regular, Systolic murmur absent, Pedal edema present (trace to 1+) and S1S2 is normal
Respiratory: Respiratory effort normal and Rhonchi Present
GI: Soft
Neuro/Psych: AO x 3
Other: Skin (Warm, dry, intact)
Data Reviewed
-
Date of Service: April 12, 2025
EKG: Tracing Personally Visualized and interpreted (Telemetry: A-fib)
Echo: Report Reviewed by me (EF 61%; mild to moderate TR, PASP 49 mmHg.)
Labs: Labs Reviewed by me
[2025-04-12 08:37] LABS: Glucose - Point of Care 126 mg/dl (70-99)
[2025-04-12 08:38] LABS: Hematocrit 34.5 % (37.0-47.0); Hemoglobin 11.0 g/dL (12.0-16.0); Mean Corp Hgb Conc. 31.9 g/dL (33.0-37.0); Mean Corpuscular Volume 91.8 fL (81.0-99.0); Nucleated Red Blood Cells % 0 %; Platelet Count 174 10^3/uL (130-400); Red Cell Dist. Width 13.4 % (11.5-14.5)
[2025-04-12] MEDS: NOVOLOG FLEXPEN-LOW RESISTANCE SC (08:53)
[2025-04-12 08:58] LABS: Blood Urea Nitrogen 40 mg/dl (7-17); Calcium 10.6 mg/dl (8.4-10.2); Carbon Dioxide 30 mmol/L (22-30); Chloride 103 mmol/L (98-107); Estimated Creatinine Clearance 39 ml/min; Glucose 120 mg/dl (70-99); Potassium 4.2 mmol/L (3.5-5.1); Sodium 139 mmol/L (135-145); eGFR 49.86
[2025-04-12] MEDS: NEURONTIN 100 MG PO (08:59)
[2025-04-12] MEDS: TRICOR 145 MG PO (08:59)
[2025-04-12] MEDS: TYLENOL 650 MG PO (08:59)
[2025-04-12] MEDS: FARXIGA 10 MG PO (08:59)
[2025-04-12] MEDS: PROTONIX 40 MG PO (09:00)
[2025-04-12] MEDS: TOPROL XL 50 MG PO (09:00)
[2025-04-12] MEDS: LOW STRENGTH ASPIRIN 81 MG PO (09:00)
[2025-04-12] MEDS: ALDACTONE 12.5 MG PO (09:00)
[2025-04-12] MEDS: HEPARIN 5000 UNITS SC ×2 (09:01→20:17)
[2025-04-12] MEDS: LASIX 40 MG PO (09:01)
[2025-04-12] MEDS: COZAAR 50 MG PO (09:02)
[2025-04-12] MEDS: NORVASC 5 MG PO (09:03)
[2025-04-12] MEDS: ZOLOFT 100 MG PO (09:05)
--- NOTE | 2025-04-12 09:07 | CM ---
Addendum entered by Avril Hartley 04/12/25 15:21:
[facility] NPI [phone]
Dr Yao NPI [phone]
Pending Ref # [id number]
[facility]
Report [phone]
fax [phone]
Addendum entered by Avril Hartley 04/12/25 09:15:
Patient is currently ambulating 100 feet with RW, per admissions at [facility] they will need immigration case manager to submit for Auth but will accept back at [facility] with a pending Auth.
Original Note:
Chart reviewed and patient was admitted from [facility], patient's plan is to return to [facility] when stable. Patient will need Auth from insurance.
[facility]
Dr. Yao
[facility]
Report [phone]

Plan; Patient to return to [facility] when stable, needs Auth.
[2025-04-12] MEDS: FLUSH (NSS) 1 FLUSH IV (09:11)
--- NOTE | 2025-04-12 11:15 | HFEDUCATE ---
84 yo female admitted with hypoxia,, dry cough and increased leg swelling. Past medical history includes HFpEF, A-fib, HTN, DM and HLD. Her current echocardiogram shows an ejection fraction of 61%. She lives at [facility]. She reports not
knowing if she follows a low sodium diet because her meals are prepared for her, she does not drink more that 48oz of fluid per day. She gets weighed every day but does not take note of her weight
I provided HF education and discussed the usual lifestyle recommendations. I advised she should follow alow sodium diet of 2000-3000mg. per day and not to use any table salt. I advised a 48 oz. fluid restriction per day and discussed ways to
achieve the recommendations. I also advised she take note of her weight when she is getting weighed and to write it in a notebook. I reviewed how to monitor for exacerbations. We discussed other alarming symptoms to watch for and when to notify the
staff where she lives or her provider. We discussed need for medications.
Recommendations:
Continue all HF recommended medications as ordered on discharge.
Limit sodium intake to <500-750 mg. per meal.
Limit fluid intake to <48 oz per day.
Daily weights and contact provider for any weight gain >3lbs in one day or 5lbs in one week.
Follow up with provider as recommended.
[2025-04-12 12:01] LABS: Glucose - Point of Care 198 mg/dl (70-99)
[2025-04-12] MEDS: NOVOLOG FLEXPEN-LOW RESISTANCE 1 UNITS SC ×2 (12:09→16:51)
[2025-04-12] MEDS: TYLENOL PO ×3 (12:14→21:39)
--- NOTE | 2025-04-12 12:32 | W.PN.HOSP.TC ---
Today's Communication/Plan
-
Monitor vital signs see plan
Wean oxygen as tolerated
Monitor calcium
Lasix
Monitor renal function
dc later today or tomorrow
Assessment / Plan
Assessment / Plan
General: Well Developed, Well Nourished and No Apparent Distress
HEENT: NormoCephalic, Moist mucous membranes and Atraumatic
Respiratory: Clear
Cardiac: S1/S2, Regular Rhythm and Peripheral Edema
GI: Soft, Non Tender, Non Distended and Normal Bowel Sounds
Musculoskeletal: edema
Neuro: Nonfocal/grossly intact
Acute CHF exacerbation with preserved ejection fraction
Acute hypoxic respiratory insufficiency likely secondary to above, wean oxygen as tolerated
- Cardiac BNP of 5000
- Chest x-ray shows no evidence of consolidation or pneumonia
- Check I's and O's, daily weight
TTE 04/10/2025: LVEF 61%, mildly reduced RV function, mild MR, mild/mod TR, PASP 49 mmHg
Transition to p.o. Lasix, also started on Farxiga
Echo 04/10 with preserved EF
- Cardiology following
Chronic head shaking unclear if underlying tremor/Parkinson's
- Patient states she has been worked up without any etiology found in the past
Permanent atrial fibrillation
- Continue metoprolol
- Continue aspirin
Chronic kidney disease 3B
- Creatinine stable at 1.1
Type 2 diabetes
- Continue Lantus 22 units
- Insulin sliding scale
Hypercalcemia
Monitor
Essential hypertension
- Continue amlodipine, losartan
Chronic anemia
- Continue ferrous sulfate
Anxiety
- Continue sertraline
History of GI bleeding
- Continue Protonix
History of hemorrhoids
Obesity
Osteoarthritis
- Continue gabapentin
Obstructive sleep apnea
Hypercholesteremia
- Continue statin, fenofibrate
hx of hemorrhoids
cw preparation H
DNR/DNI
DVT prophylaxis�heparin
Anticipated Discharge: Within 24 hours
Subjective/Interval History
-
Date of Service: April 12, 2025
denies pain
Objective Data
-
Labs:
Laboratory Results
04/12/25
06:41
WBC 4.6 L
Hgb 11.0 L
Hct 34.5 L
Plt Count 174
Sodium 139
Potassium 4.2
Chloride 103
Carbon Dioxide 30
BUN 40 H
Creatinine 1.1 H
Glucose 120 H
Calcium 10.6 H
Vital Signs:
Vital Signs
Temp Pulse Resp BP Pulse Ox
97.8 F 65 20 146/68 95
04/12/25 11:31 04/12/25 11:31 04/12/25 11:31 04/12/25 11:31 04/12/25 11:31
I&O
04/11/25 04/12/25 04/13/25
06:59 06:59 06:59
Intake Total 240 / 240 960 / 960
Output Total 1608 / 1608 1350 / 1350 350 / 350
Balance -1368 / -1368 -390 / -390 -350 / -350
[2025-04-12 16:34] LABS: Glucose - Point of Care 175 mg/dl (70-99)
[2025-04-12] MEDS: TOPROL XL 25 MG PO (17:28)
[2025-04-12] MEDS: CRESTOR 5 MG PO (20:17)
[2025-04-12] MEDS: NEURONTIN 300 MG PO (20:17)
[2025-04-12 21:15] LABS: Glucose - Point of Care 189 mg/dl (70-99)
[2025-04-12] MEDS: LANTUS 0.22 UNITS SC (21:34)
[2025-04-13 03:23] VITALS: BP 130/62
[2025-04-13 05:45] VITALS: BMI 31.4
[2025-04-13 07:24] LABS: Glucose - Point of Care 139 mg/dl (70-99)
[2025-04-13 07:25] VITALS: BP 157/72
[2025-04-13 07:37] LABS: Hematocrit 38.3 % (37.0-47.0); Hemoglobin 12.1 g/dL (12.0-16.0); Mean Corp Hgb Conc. 31.6 g/dL (33.0-37.0); Mean Corpuscular Volume 92.5 fL (81.0-99.0); Nucleated Red Blood Cells % 0 %; Platelet Count 192 10^3/uL (130-400); Red Cell Dist. Width 13.4 % (11.5-14.5)
[2025-04-13 08:08] LABS: Blood Urea Nitrogen 45 mg/dl (7-17); Calcium 10.4 mg/dl (8.4-10.2); Carbon Dioxide 35 mmol/L (22-30); Chloride 101 mmol/L (98-107); Estimated Creatinine Clearance 33 ml/min; Glucose 132 mg/dl (70-99); Potassium 4.5 mmol/L (3.5-5.1); Sodium 141 mmol/L (135-145); eGFR 40.80
[2025-04-13] MEDS: FARXIGA 10 MG PO (08:19)
[2025-04-13] MEDS: NOVOLOG FLEXPEN-LOW RESISTANCE SC (08:19)
[2025-04-13] MEDS: LASIX 40 MG PO (08:20)
[2025-04-13] MEDS: NEURONTIN 100 MG PO (08:20)
[2025-04-13] MEDS: ALDACTONE 12.5 MG PO (08:20)
[2025-04-13] MEDS: ZOLOFT 100 MG PO (08:20)
[2025-04-13] MEDS: PROTONIX 40 MG PO (08:20)
[2025-04-13] MEDS: COZAAR 50 MG PO (08:20)
[2025-04-13] MEDS: TRICOR 145 MG PO (08:20)
[2025-04-13] MEDS: HEPARIN 5000 UNITS SC (08:21)
[2025-04-13] MEDS: LOW STRENGTH ASPIRIN 81 MG PO (08:21)
[2025-04-13] MEDS: NORVASC 5 MG PO (08:21)
[2025-04-13] MEDS: TOPROL XL 50 MG PO (08:21)
[2025-04-13] MEDS: TYLENOL PO ×2 (08:26→12:54)
--- NOTE | 2025-04-13 10:38 | CM ---
Patient has been approved for skilled placement at [facility], Auth [id number] for 5 days 04/13/25 to 04/17/25.
Plan; Patient to return to [facility] today
[facility]
Report [phone]
[2025-04-13 11:50] VITALS: BP 137/63
[2025-04-13 11:50] LABS: Glucose - Point of Care 163 mg/dl (70-99)
[2025-04-13] MEDS: NOVOLOG FLEXPEN-LOW RESISTANCE 1 UNITS SC (11:53)
--- NOTE | 2025-04-13 12:41 | W.PN.HOSP.TC ---
Today's Communication/Plan
-
Monitor vital signs see plan
Wean oxygen as tolerated
Discharge today
[facility] outpatient
Lasix
Time of discharge 38 minutes
Assessment / Plan
Assessment / Plan
General: Well Developed, Well Nourished and No Apparent Distress
HEENT: NormoCephalic, Moist mucous membranes and Atraumatic
Respiratory: Clear
Cardiac: S1/S2, Regular Rhythm and Peripheral Edema
GI: Soft, Non Tender, Non Distended and Normal Bowel Sounds
Musculoskeletal: edema
Neuro: Nonfocal/grossly intact
Acute CHF exacerbation with preserved ejection fraction
Acute hypoxic respiratory insufficiency likely secondary to above, wean oxygen as tolerated
- Cardiac BNP of 5000
- Chest x-ray shows no evidence of consolidation or pneumonia
- Check I's and O's, daily weight
TTE 04/10/2025: LVEF 61%, mildly reduced RV function, mild MR, mild/mod TR, PASP 49 mmHg
Transitioned to p.o. Lasix, also started on
Echo 04/10 with preserved EF
- Cardiology following
Chronic head shaking unclear if underlying tremor/Parkinson's
- Patient states she has been worked up without any etiology found in the past
Permanent atrial fibrillation
- Continue metoprolol
- Continue aspirin
Chronic kidney disease 3B
- Creatinine mildly increased likely secondary to diuresis, now already transition to p.o. Lasix. [facility] outpatient
Type 2 diabetes
- Continue Lantus 22 units
- Insulin sliding scale
Hypercalcemia
Monitor
Essential hypertension
- Continue amlodipine, losartan
Chronic anemia
- Continue ferrous sulfate
Anxiety
- Continue sertraline
History of GI bleeding
- Continue Protonix
History of hemorrhoids
Obesity
Osteoarthritis
- Continue gabapentin
Obstructive sleep apnea
Hypercholesteremia
- Continue statin, fenofibrate
hx of hemorrhoids
cw preparation H
DNR/DNI
DVT prophylaxis�heparin
Anticipated Discharge: Today
Subjective/Interval History
-
Date of Service: April 13, 2025
Denies pain
Objective Data
-
Labs:
Laboratory Results
04/13/25
06:08
WBC 4.5 L
Hgb 12.1
Hct 38.3
Plt Count 192
Sodium 141
Potassium 4.5
Chloride 101
Carbon Dioxide 35 H
BUN 45 H
Creatinine 1.3 H
Glucose 132 H
Calcium 10.4 H
Vital Signs:
Vital Signs
Temp Pulse Resp BP Pulse Ox
98.4 F 61 20 157/72 92
04/13/25 07:25 04/13/25 08:21 04/13/25 07:25 04/13/25 08:21 04/13/25 07:25
I&O
04/12/25 04/13/25 04/14/25
06:59 06:59 06:59
Intake Total 960 / 960 960 / 960
Output Total 1350 / 1350 1800 / 1800
Balance -390 / -390 -840 / -840
--- NOTE | 2025-04-13 12:49 | W.DCSUMMARY ---
Discharge Summary
Discharge Data
Date of Admission: 04/09/25
Date of Discharge: 04/13/25
-
Pending Results: No
Hospital Course
84-year-old female with past medical history of pulmonary fibrillation, CKD, type 2 diabetes mellitus, essential hypertension, chronic anemia, anxiety, hemorrhoids, osteoarthritis, obstructive sleep apnea, hyperlipidemia came to the hospital with
acute congestive heart failure exacerbation. Patient was initially started on IV Lasix which was later transitioned to p.o. Lasix prior to discharge. Patient was seen by cardiology throughout hospitalization. Patient was also started on farxiga
prior to discharge. Once her symptoms continue to improve, she was then discharged back to [facility] with instructions to follow-up with all her physicians outpatient.
Discharge Plan
-
Patient Disposition: Home (Routine Discharge)
Discharge Diagnosis/Procedures: Acute CHF exacerbation with preserved ejection fraction
Renal insufficiency
Permanent atrial fibrillation
Diet: As tolerated
Activity: As tolerated
Driving Restrictions: As prior to admission
Bathing Restrictions: None
Blood Work: BMP next week with PCP
Referrals:
Lalitha Hong CRNP [Specified Professional Personl, Cardiology] - 05/02/25 8:20 am
Tim Yao DO [Family Provider, Family Practice] - in less than 1 week
Prescriptions:
New
dapagliflozin propanediol 10 mg Tablet
10 mg PO DAILY Qty: 0 0RF
furosemide 40 mg Tablet
40 mg PO DAILY Qty: 0 0RF
spironolactone 25 mg Tablet
12.5 mg PO DAILY Qty: 0 0RF
Hemorrhoidal(PE-min oil-nicolle) 0.25-14-74.9 % Ointment
1 applic CO Q6HPRN PRN (Reason: hemorrhoids) Qty: 0 0RF
Continued
pantoprazole 40 MG tablet,delayed release (DR/EC)
40 mg PO DAILY
losartan 50 mg Tablet
50 mg PO DAILY
fenofibrate micronized 134 mg Capsule
134 mg PO DAILY
metoprolol succinate [Toprol XL] 50 mg Tablet Extended Release 24 Hr
50 mg PO DAILY MDD \\
sertraline 100 mg Tablet
100 mg PO DAILY
amlodipine [Norvasc] 5 mg Tablet
5 mg PO DAILY
acetaminophen 650 mg Tablet Extended Release
1,300 mg PO Q12H
gabapentin 300 mg Capsule
300 mg PO HS
aspirin 81 mg Tablet,Chewable
81 mg PO DAILY
gabapentin 100 mg Capsule
100 mg PO DAILY
metoprolol succinate [Toprol XL] 25 mg Tablet Extended Release 24 Hr
25 mg PO QPM
rosuvastatin [Crestor] 5 mg Tablet
5 mg PO HS
insulin glargine [Lantus Solostar U-100 Insulin] 100 unit/mL (3 mL) Insulin Pen
22 unit SC HS
cranberry 450 mg Tablet
450 mg PO DAILY
ondansetron HCl 4 mg Tablet
4 mg PO Q8HPRN PRN (Reason: nausea)
magnesium hydroxide [Milk of Magnesia] 400 mg/5 mL Suspension
2,400 mg PO HSPRN PRN (Reason: constipation)
bisacodyl [Dulcolax (bisacodyl)] 10 mg Suppository
10 mg CO [id number] PRN (Reason: if no bm aftr mom)
Changed
acetaminophen [Tylenol] 325 mg Tablet
650 mg PO Q8HPRN PRN (Reason: mild pain) Qty: 0 0RF
insulin aspart U-100 100 unit/mL Solution
4 sliding scale dose SC AC Qty: 0 0RF
Discharge Orders:
Discharge Patient (As Directed); Ordered 04/13/25
Ordered By: Rasheed Mayorga
Discharge Date and Time
Discharge Date/Time: 04/13/25 16:48
Print Language: MEXICAN
[2025-04-13 15:20] VITALS: BP 144/62
== END 2025-04-13 16:48 | DRG 291 ==
LOC: 4 EAST ACU 19:03
PROVIDERS: Physician Assistant; ADMITTING PHYSICIAN Hospitalist; ATTENDING PHYSICIAN Internal Medicine; CONSULT PHYSICIAN Internal Medicine Cardiovascular Disease; EMERGENCY PHYSICIAN Emergency Medicine; FAMILY PHYSICIAN Student in an Organized Health Care Education/Training Program
DX: I13.0 Hypertensive heart and chronic kidney disease with heart failure and stage 1 through stage 4 chronic kidney disease, or unspecified chronic kidney disease (principal); I50.33 Acute on chronic diastolic (congestive) heart failure; I48.21 Permanent atrial fibrillation; N18.32 Chronic kidney disease, stage 3b; E78.00 Pure hypercholesterolemia, unspecified; D64.9 Anemia, unspecified; E11.22 Type 2 diabetes mellitus with diabetic chronic kidney disease; G47.33 Obstructive sleep apnea (adult) (pediatric); M19.90 Unspecified osteoarthritis, unspecified site; F41.9 Anxiety disorder, unspecified; E83.52 Hypercalcemia; F32.9 Major depressive disorder, single episode, unspecified; K21.9 Gastro-esophageal reflux disease without esophagitis; R06.89 Other abnormalities of breathing; R09.02 Hypoxemia; K64.9 Unspecified hemorrhoids; E66.9 Obesity, unspecified; Z66 Do not resuscitate; Z90.710 Acquired absence of both cervix and uterus; Z68.31 Body mass index [BMI] 31.0-31.9, adult; Z88.1 Allergy status to other antibiotic agents; Z88.5 Allergy status to narcotic agent; Z88.0 Allergy status to penicillin; Z88.2 Allergy status to sulfonamides; Z88.8 Allergy status to other drugs, medicaments and biological substances; Z79.82 Long term (current) use of aspirin; Z79.4 Long term (current) use of insulin; Z11.52 Encounter for screening for COVID-19
CPT/HCPCS: 36415; 71046; 80048; 80053; 82962; 83880; 84484; 85025; 85027; 87502; 87811; 93005; 93306; 97116; 97162; 99285

== ENCOUNTER → 2025-04-26 10:26 | Outpatient (REF) | payer OTHER, SELFPAY ==
[2025-04-26 11:48] LABS: Blood Urea Nitrogen 63 mg/dl (7-17); Calcium 9.8 mg/dl (8.4-10.2); Carbon Dioxide 27 mmol/L (22-30); Chloride 106 mmol/L (98-107); Glucose 90 mg/dl (70-99); Potassium 4.6 mmol/L (3.5-5.1); Sodium 140 mmol/L (135-145); eGFR 24.33
== END ==
LOC: OLABN 10:26
PROVIDERS: ATTENDING PHYSICIAN Student in an Organized Health Care Education/Training Program
DX: N18.32 Chronic kidney disease, stage 3b (principal)
CPT/HCPCS: 36415; 80048

== ENCOUNTER → 2025-05-07 11:18 | Outpatient (REF) | payer OTHER, SELFPAY ==
[2025-05-07 12:35] LABS: Blood Urea Nitrogen 52 mg/dl (7-17); Calcium 10.0 mg/dl (8.4-10.2); Carbon Dioxide 27 mmol/L (22-30); Chloride 102 mmol/L (98-107); Glucose 150 mg/dl (70-99); Potassium 4.3 mmol/L (3.5-5.1); Sodium 137 mmol/L (135-145); eGFR 29.57
== END ==
LOC: OLABN 11:18
PROVIDERS: ATTENDING PHYSICIAN Student in an Organized Health Care Education/Training Program
DX: R79.0 Abnormal level of blood mineral (principal)
CPT/HCPCS: 36415; 80048

== ENCOUNTER → 2025-06-04 17:38 | Outpatient (REF) | payer OTHER, SELFPAY ==
[2025-06-05 12:23] LABS: Urine Character Clear (Clear)
[2025-06-05 12:37] LABS: Urine Red Blood Cell 0-2 /HPF (0-2); Urine White Cell 0-2 /HPF (0-5)
== END ==
LOC: OLABN 17:38
PROVIDERS: ATTENDING PHYSICIAN Student in an Organized Health Care Education/Training Program
DX: R35.0 Frequency of micturition (principal)
CPT/HCPCS: 81003; 81015; 87077; 87086

== ENCOUNTER → 2025-07-26 09:48 | Outpatient (REF) | payer OTHER, SELFPAY ==
[2025-07-26 11:16] LABS: Hematocrit 41.6 % (37.0-47.0); Hemoglobin 13.0 g/dL (12.0-16.0); Mean Corp Hgb Conc. 31.3 g/dL (33.0-37.0); Mean Corpuscular Volume 87.2 fL (81.0-99.0); Nucleated Red Blood Cells % 0 %; Platelet Count 216 10^3/uL (130-400); Red Cell Dist. Width 15.0 % (11.5-14.5)
[2025-07-26 11:27] LABS: Blood Urea Nitrogen 40 mg/dl (7-17); Calcium 9.9 mg/dl (8.4-10.2); Carbon Dioxide 26 mmol/L (22-30); Chloride 103 mmol/L (98-107); Glucose 170 mg/dl (70-99); Potassium 4.6 mmol/L (3.5-5.1); Sodium 135 mmol/L (135-145); eGFR 37.10
== END ==
LOC: OLABN 09:48
PROVIDERS: ATTENDING PHYSICIAN Student in an Organized Health Care Education/Training Program
DX: R11.10 Vomiting, unspecified (principal)
CPT/HCPCS: 36415; 80048; 85025

== ENCOUNTER → 2025-08-02 09:04 | Outpatient (REF) | payer OTHER, SELFPAY ==
[2025-08-02 11:05] LABS: Blood Urea Nitrogen 39 mg/dl (7-17); Calcium 10.1 mg/dl (8.4-10.2); Carbon Dioxide 27 mmol/L (22-30); Chloride 103 mmol/L (98-107); Glucose 119 mg/dl (70-99); Potassium 4.3 mmol/L (3.5-5.1); Sodium 135 mmol/L (135-145); eGFR 37.10
== END ==
LOC: OLABN 09:04
PROVIDERS: ATTENDING PHYSICIAN Student in an Organized Health Care Education/Training Program
DX: N18.32 Chronic kidney disease, stage 3b (principal)
CPT/HCPCS: 36415; 80048